=== PATIENT | female | born 1980 | race Caucasian/White ===

== ENCOUNTER 2017-04-02 10:38 | Day surgery (SDC) | payer MEDICAID ==
[2017-04-02] MEDS ORDERED: HYDROmorphone 1 MG/ML 1 ML SYRINGE IVP PRN (10:53)
[2017-04-02] MEDS ORDERED: LACTATED RINGERS 1,000 ML IV SCH (10:53)
[2017-04-02 11:00] VITALS: TEMP 98.4
[2017-04-02 11:15] VITALS: BMI 35.0
[2017-04-02] MEDS ORDERED: LIDOCAINE 1% INJ 10MG/ML (20 ML MDV) ONE (11:24)
[2017-04-02] MEDS ORDERED: PROPOFOL 10 MG/ML 20 ML VIAL IV ONE (11:24)
--- NOTE | 2017-04-02 11:27 | P.OP ---
Date of Procedure: 04/02/17 Preoperative Diagnosis: Epigastric pain Chronic constipation Rectal bleeding Fibromyalgia Postoperative Diagnosis: Hillgrade 2 Hiatal hernia Procedure(s) Performed: EGD with biopsy Colonoscopy Implants: NA Anesthesia: MAC Surgeon: Isa Fleming Pathology: other Condition: stable (ASA 2) Disposition: PACU Indications for Procedure: 36 yrs old female with fibromyalgia and chronic constipation presents with epigastric pain, cramps and spontaneous bright red rectal bleeding . 10 lbs weight loss. Take [place] 2-3 times a day for fibromyalgia. No family history of colon cancer or inflammatory bowel disease. She agreed undergo EGD and colonoscopy with biopsy Operative Findings: Hillgrade 2 hiatal hernia Internal and external hemorrhoids Description of Procedure: A timeout was performed to verify the correct patient and correct procedure. Patient was on continuous vitals and pulse ox monitoring throughout the procedure. She was placed in lateral decubitus position and an oral bite block was inserted. A well-lubricated Olympus upper endoscope was passed orally. The esophagus was intubated without difficulty. The vocal cords were visualised and protected at all times. The endoscope was passed beyond the pylorus into the first and second portion of the duodenum. No normality is noted in the duodenum mucosa. Two random biopsies were taken from the gastric antrum using cold biopsy forceps. The scope was then retroflexed. Small hiatal was noted which is Hill Grade 2. No mass, active ulcer or bleeding stigmata noted within the gastric lumen. The GE junction is measured at 35 cm from the incisors . No evidence of reflux esophagitis. The endoscope was gradually withdrawn. No abnormality identified in the esophagus. Patient tolerated the procedure well and was positioned for colonoscopy. The patient was brought to the endoscopy suite and placed in lateral decubitus position. IV sedation was given as per anesthesia team. Patient was on continuous vitals and pulse oximetry monitoring throughout the procedure. Perianal examination showed external hemorrhoids. Digital rectal examination was performed. No masses or gross blood. A well-lubricated Olympus colonoscope was passed per rectally and was gradually advanced beyond the sigmoid colon, splenic flexure, transverse colon, hepatic flexure and cecum. The ileocecal valve was visualized as well as the appendiceal orifice .The colonoscope was gradually withdrawn inspecting all the mucosal surfaces. Bowel prep was good. No polyps, masses, AV malformations noted. No sigmoid diverticulosis. The scope was gradually withdrawn and retroflexed in the rectum . Grade 2 internal hemorrhoids seen. Total withdrawal time was greater than 6 minutes . Patient tolerated the procedure well and was taken to post anesthesia care unit in stable condition. SPECIMEN: Antral biopsy RECOMMENDATION: Proctocort rectal suppository BID x 10 days Final Pathologic Diagnosis STOMACH, BIOPSY: MILD CHRONIC GASTRITIS. HELICOBACTER IMMUNOPEROXIDASE STAIN IS PERFORMED TO EVALUATE FOR HELICOBACTER ORGANISMS AND IS NEGATIVE (CONTROLS APPROPRIATE).
[2017-04-02 12:17] VITALS: BP 129/75; PULSE 69; RESP 16
== END 2017-04-02 12:39 | disposition home or self-care (01) ==
LOC: ORWHC2ENDO 10:38
PROVIDERS: ATTEND Surgery
DX: K29.50 Unspecified chronic gastritis without bleeding (principal); K44.9 Diaphragmatic hernia without obstruction or gangrene; K64.4 Residual hemorrhoidal skin tags; K64.1 Second degree hemorrhoids; R63.4 Abnormal weight loss; K59.00 Constipation, unspecified; F17.200 Nicotine dependence, unspecified, uncomplicated; Z79.891 Long term (current) use of opiate analgesic; Z79.899 Other long term (current) drug therapy; Z88.1 Allergy status to other antibiotic agents; Z88.0 Allergy status to penicillin
CPT/HCPCS: 81025; 88305; 88342; 45378; 43239; J2001; J2704

== ENCOUNTER → 2018-03-20 | Outpatient (CLI) | payer MEDICAID ==
--- NOTE | 2018-03-20 08:51 | US ---
EXAMINATION TYPE: US abdomen complete DATE OF EXAM: 03/20/2018 COMPARISON: NONE CLINICAL HISTORY: R10.10 ABD PAIN. RUQ pain EXAM MEASUREMENTS: Liver Length: 13.4 cm Gallbladder Wall: 0.2 cm CBD: 0.3 cm Spleen: 10.8 cm Right Kidney: 12.0 x 4.0 x 6.1 cm Left Kidney: 13.0 x 5.1 x 5.2 cm Pancreas: visualized portions wnl, imaged at end of exam Liver: wnl Gallbladder: multiple mobile stones with shadowing Evidence for sonographic Dias's sign: Yes CBD: wnl Spleen: wnl Right Kidney: No hydronephrosis or masses seen, limited views of lower pole due to bowel gas. Left Kidney: No hydronephrosis or masses seen Upper IVC: wnl Abd Aorta: wnl The liver is homogenous. The intrahepatic portion of the IVC and proximal abdominal aorta are within normal limits. Common bile duct is unremarkable. The visualized portions of the pancreas are homog enous. The spleen is unremarkable. Kidneys are symmetric and free of hydronephrosis. No renal lesi ons are seen. IMPRESSION: 1. Uncomplicated cholelithiasis.
--- NOTE | 2018-03-20 08:58 | US ---
EXAMINATION TYPE: US pelvis complete transvag DATE OF EXAM: 03/20/2018 COMPARISON: NONE CLINICAL HISTORY: R10.10 ABD PAIN. TECHNIQUE: . Transabdominal sonographic images of the pelvis were acquired. Transvaginal sonographi c images were medically necessary to better assess the following anatomy: ovaries Date of LMP: 02/19/2018 EXAM MEASUREMENTS: Uterus: 10.4 x 3.2 x 6.7 cm Endometrial Stripe: 1.3 cm Right Ovary: not visualized due to bowel gas cm Left Ovary: 4.0 x 3.2 x 2.3 cm 1. Uterus: Anteverted wnl 2. Endometrium: wnl 3. Right Ovary: not visualized due to bowel gas 4. Left Ovary: wnl, only seen transabdominally 5. Bilateral Adnexa: extensive bowel gas noted right adnexa 6. Posterior cul-de-sac: no free fluid IMPRESSION: 1. No significant abnormality appreciated.
== END | disposition home or self-care (01) ==
LOC: RADUSWWP 07:26
PROVIDERS: ATTEND Family Medicine
DX: K80.20 Calculus of gallbladder without cholecystitis without obstruction (principal)
CPT/HCPCS: 76700; 76830; 76856

== ENCOUNTER 2018-04-23 07:41 | Day surgery (SDC) | payer MEDICAID ==
[2018-04-20 14:56] VITALS: BMI 34.3
[~2018-04-23 07:41] MED LIST: LACTATED RINGERS 1,000 ML IV SCH; LIDOCAINE 1% 20 ML VIAL (10MG/ML) FOR IV START INTRADERMA PRN; MIDAZOLAM 2 MG/2 ML VIAL IV PRN
[2018-04-23] MEDS ORDERED: HEPARIN SODIUM,PORCINE 5,000 UNIT/ML 1 ML VIAL SQ ONE (08:00)
[2018-04-23] MEDS ORDERED: ceFAZolin IN SWFI 2 GM/20 ML SYRINGE IVP ONE (08:00)
[2018-04-23] MEDS ORDERED: SCOPOLAMINE 1.5MG/72HR PATCH TRANSDERM STA (08:40)
[2018-04-23] MEDS ORDERED: ONDANSETRON 4 MG/2 ML VIAL IVP STA (08:40)
[2018-04-23] MEDS ORDERED: DEXAMETHASONE SOD PHOSPHATE 10 MG/ML 1 ML VIAL IV ONE (08:40)
--- NOTE | 2018-04-23 08:59 | P.GSHP ---
History of Present Illness H&P Date: 04/23/18 Chief Complaint: Right upper quadrant pain This is a 37-year-old female referred from Dr. Michele. Patient presents today for laparoscopic cholestatic. She's had complaints of right upper quadrant pain. Her social shows evidence of cholelithiasis. Past Medical History Past Medical History: Diabetes Mellitus, Fibromyalgia, Seizure Disorder Additional Past Medical History / Comment(s): polycystic ovaries; diet controlled diabetes History of Any Multi-Drug Resistant Organisms: MRSA Date of last positivie culture/infection: 11/2017 MDRO Source:: vaginal cyst Past Surgical History: Section Past Anesthesia/Blood Transfusion Reactions: No Reported Reaction Smoking Status: Current every day smoker - Past Family History Brother(s) Family Medical History: Cancer Medications and Allergies Home Medications Medication Instructions Recorded Confirmed Type Gabapentin [Neurontin] 400 mg PO TID 09/14/15 04/20/18 History HYDROcodone/APAP 5-325MG [[place] 5] 1 tab PO Q8HR PRN 09/14/15 04/23/18 History DULoxetine HCL [Cymbalta] 60 mg PO DAILY 09/24/16 04/20/18 History Topiramate [Topamax] 100 mg PO QAM 09/24/16 04/20/18 History Allergies Allergy/AdvReac Type Severity Reaction Status Date / Time Penicillins Allergy Rash/Hives Verified 04/23/18 08:05 sulfamethoxazole Allergy Rash/Hives Verified 04/23/18 08:05 [From Bactrim] trimethoprim [From Bactrim] Allergy Rash/Hives Verified 04/23/18 08:05 Surgical - Exam Vital Signs Temp Pulse Resp BP Pulse Ox 97.7 F 77 18 130/82 97 04/23/18 08:06 04/23/18 08:06 04/23/18 08:06 04/23/18 08:06 04/23/18 08:06 - General well developed, no distress - Eyes PERRL - ENT normal pinna - Neck no masses - Respiratory normal expansion - Cardiovascular Rhythm: regular - Abdomen Abdomen: soft, non tender Assessment and Plan Assessment: Cholelithiasis Chronic Cholecystitis We'll perform laparoscopic cholecystectomy
[2018-04-23] MEDS ORDERED: KETOROLAC 30 MG/ML 1 ML VIAL ONE (09:16)
[2018-04-23] MEDS ORDERED: fentaNYL (PF) 50 MCG/ML 2 ML AMP ONE (09:16)
[2018-04-23] MEDS ORDERED: PROPOFOL 10 MG/ML 20 ML VIAL IV ONE (09:16)
[2018-04-23] MEDS ORDERED: NEOSTIGMINE 1 MG/ML 10 ML VIAL ONE (09:16)
[2018-04-23] MEDS ORDERED: LIDOCAINE 1% INJ 10MG/ML (20 ML MDV) ONE (09:16)
[2018-04-23] MEDS ORDERED: MIDAZOLAM 2 MG/2 ML VIAL ONE (09:16)
[2018-04-23] MEDS ORDERED: SUCCINYLCHOLINE CHLORIDE 100 MG/5 ML SYR IV ONE (09:16)
[2018-04-23] MEDS ORDERED: ROCURONIUM BROMIDE 10 MG/ML 10 ML VIAL IV ONE (09:16)
[2018-04-23] MEDS ORDERED: GLYCOPYRROLATE 0.2 MG/ML 2 ML VIAL ONE (09:16)
[2018-04-23] MEDS ORDERED: BUPIVACAINE (PF) 0.5% 30 ML VIAL SQ ONE (09:38)
[2018-04-23] MEDS ORDERED: LACTATED RINGERS 1,000 ML IV ONE (10:02)
[2018-04-23 10:19] VITALS: TEMP 98.8
--- NOTE | 2018-04-23 10:19 | P.OP ---
Date of Procedure: 04/23/18 Preoperative Diagnosis: Cholelithiasis Chronic cholecystitis Postoperative Diagnosis: Cholelithiasis Chronic cholecystitis Procedure(s) Performed: Laparoscopic cholecystectomy Anesthesia: TYREE Surgeon: Enrike Cohen Estimated Blood Loss (ml): 5 Pathology: other (Gallbladder) Condition: stable Disposition: PACU Description of Procedure: The patient was placed on the operating table. The patient received a general endotracheal tube anesthesia. The patients abdomen was prepped and draped in the usual sterile fashion. Through an infraumbilical stab incision, the fascia of the anterior abdominal wall was grasped with a pair of Kochers and then the Veress needle was placed in the peritoneal cavity. Position of the Veress needle was confirmed with positive drop test. The abdomen was then insufflated. After adequate insufflation, the 10 mm trocar was placed in the peritoneal cavity. Following this the laparoscope was placed in the peritoneal cavity. The patient was placed in the head-up, right side up position and then a 5 mm trocar was placed in the right lateral and right subcostal position under direct visualization. A 8 mm trocar was placed in the epigastric position. The gallbladder was grasped in the fundus and infundibulum. Traction on the gallbladder was placed in the lateral and the cephalad positions. The triangle of Calot was visualized.. The cystic duct was bluntly dissected until the union of the cystic duct and common bile duct was seen. The cystic duct was then divided and sealed with the Harmonic scissors. A PDS Endoloop was then placed throughout the cystic duct stump. The cystic artery divided and sealed with the Harmonic scissors. The gallbladder was then removed from the liver bed using Harmonic scissors. The gallbladder was then extracted through the epigastric port site. Operative field was checked for any bleeding spots and Harmonic scissors was used to coagulate the liver bed. The abdomen was irrigated. The trocars were removed. The skin was closed using interrupted 3-0 Vicryl suture. Dermabond dressing were applied. The patient tolerated the procedure well.
[2018-04-23] MEDS: fentaNYL (PF) 50 MCG/ML 2 ML AMP IV PRN ×2 (10:25→10:36)
[2018-04-23 10:30] VITALS: RESP 18
[2018-04-23 10:44] LABS: Glucose,Whole Blood 121 mg/dL (75-99)
[2018-04-23] MEDS ORDERED: MEPERIDINE 50 MG/ML SYRINGE IVP ONE (10:47)
[2018-04-23] MEDS ORDERED: HYDROcodone/APAP 5-325MG 1 EACH TAB PO ONE (11:34)
[2018-04-23 11:58] VITALS: BP 161/73; PULSE 63
== END 2018-04-23 12:07 | disposition home or self-care (01) ==
LOC: OR 07:41
PROVIDERS: ATTEND Surgery
DX: K80.10 Calculus of gallbladder with chronic cholecystitis without obstruction (principal); E11.9 Type 2 diabetes mellitus without complications; M79.7 Fibromyalgia; G40.909 Epilepsy, unspecified, not intractable, without status epilepticus; E28.2 Polycystic ovarian syndrome; F39 Unspecified mood [affective] disorder; F17.200 Nicotine dependence, unspecified, uncomplicated; Z88.0 Allergy status to penicillin; Z88.2 Allergy status to sulfonamides; Z88.1 Allergy status to other antibiotic agents; Z79.899 Other long term (current) drug therapy; Z86.14 Personal history of Methicillin resistant Staphylococcus aureus infection; Z80.9 Family history of malignant neoplasm, unspecified
CPT/HCPCS: 47562; 81025; 88304; J2250; J1644; J1100; J2710; J2175; J2405; J2001; J3010; J1885; J0330; J2704; J0690

== ENCOUNTER 2018-10-13 14:23 | Emergency (ER) | payer MEDICAID ==
[2018-10-13 15:15] VITALS: TEMP 98.5
--- NOTE | 2018-10-13 17:29 | ED ---
General Adult HPI - General Chief complaint: Back Pain/Injury Stated complaint: back,hip pain Source: patient, RN notes reviewed, old records reviewed Mode of arrival: ambulatory Limitations: no limitations - History of Present Illness Initial comments: 38-year-old female patient with past history of chronic low back pain, fibromyalgia, presents in ED with back pain, left-sided hip pain. Patient states that approximately one week ago she was walking down her steps, the bottom step she slipped on some ice, and did the "splits" with her left foot leading. Patient states that she has had pain in her lumbar spine, left hip since. Patient denies head or neck trauma during fall. Patient states that the pain. Back is mostly in her left paralumbar region, sometimes radiates to her left gluteal region. Patient states that the pain in her hip is left-sided , worse with ambulation. Patient has been ambulatory since injury. Denies new onset paresthesias, lower extremity weakness, loss of bowel or bladder control, fever/chills, history of IV drug use. Patient denies all other complaints. Patient states that she started her menses today, this is the regular time for her cycle to Start. Systemic: Pt denies fatigue, myalgia, fever/chills, rash. Pt denies weakness, night sweats, weight loss. Neuro: Pt denies headache, visual disturbances, syncope or pre-syncope. HEENT: Pt denies ocular discharge or irritation, otalgia, rhinorrhea, pharyngitis or notable lymphadenopathy. Cardiopulmonary: Pt denies chest pain, SOB, heart palpitations, dyspnea on exertion. Abdominal/GI: Pt denies abdominal pain, n/v/d. : Pt denies dysuria, burning w/ urination, frequency/urgency. Denies new onset urinary or bowel incontinence. MSK: Pt denies myalgia, loss of strength or function in extremities. - Related Data Home Medications Medication Instructions Recorded Confirmed Gabapentin [Neurontin] 400 mg PO TID 09/14/15 04/20/18 HYDROcodone/APAP 5-325MG [[place] 5] 1 tab PO Q8HR PRN 09/14/15 04/23/18 DULoxetine HCL [Cymbalta] 60 mg PO DAILY 09/24/16 04/20/18 Topiramate [Topamax] 100 mg PO QAM 09/24/16 04/20/18 Previous Rx's Medication Instructions Recorded Cyclobenzaprine [Flexeril] 1 tab PO TID 5 Days #15 tablet 10/13/18 Allergies Allergy/AdvReac Type Severity Reaction Status Date / Time Penicillins Allergy Rash/Hives Verified 10/13/18 15:12 sulfamethoxazole Allergy Rash/Hives Verified 10/13/18 15:12 [From Bactrim] trimethoprim [From Bactrim] Allergy Rash/Hives Verified 10/13/18 15:12 Review of Systems ROS Statement: Those systems with pertinent positive or pertinent negative responses have been documented in the HPI. ROS Other: All systems not noted in ROS Statement are negative. Past Medical History Past Medical History: Diabetes Mellitus, Fibromyalgia, Seizure Disorder Additional Past Medical History / Comment(s): polycystic ovaries; diet controlled diabetes History of Any Multi-Drug Resistant Organisms: MRSA Date of last positivie culture/infection: 11/2017 MDRO Source:: vaginal cyst Past Surgical History: Section Past Anesthesia/Blood Transfusion Reactions: No Reported Reaction Past Psychological History: Anxiety Smoking Status: Current every day smoker Past Alcohol Use History: None Reported Past Drug Use History: None Reported - Past Family History Brother(s) Family Medical History: Cancer General Exam - General Exam Comments Initial Comments: Constitutional: NAD, AOX3, Pt has pleasant affect. HEENT: NC/AT, trachea midline, neck supple, no lymphadenopathy. Posterior pharynx non erythematous, without exudates. External ears appear normal, without discharge. Mucous membranes moist. Eyes PERRLA, EOM intact. There is no scleral icterus. No pallor noted. Cardiopulmonary: RRR, no murmurs, rubs or gallops, no JVD noted. Lungs CTAB in anterior and posterior gaviria. No peripheral edema. Abdominal exam: Abdomen soft and non-distended. Abdomen non-tender to palpation in all 4 quadrants. Bowel sounds active in LLQ. No hepatosplenomegaly. Neuro: CN II-XII grossly intact. MSK: Midline cervical spine, thoracic spine, lumbar spine nontender to palpation. Left Paralumbar spinal area mildly tender to palpation. Patient hip 's nontender to palpation bilaterally. Patient ambulatory, heel toe walking intact. Patient psoas and quadriceps strength 5 out of 5 bilaterally. Patient patellar and Achilles reflex 2 out of 4 bilaterally. Patient posterior tibialis pulse +2 bilaterally. Patient sensation intact in lower extremities bilaterally. Patient straight leg raise positive bilaterally. Limitations: no limitations Course Vital Signs 10/13/18 10/13/18 10/13/18 15:12 18:51 20:12 Temperature 98.5 F Pulse Rate 91 70 68 Respiratory 18 16 14 Rate Blood Pressure 124/84 114/73 133/77 O2 Sat by Pulse 98 100 95 Oximetry Medical Decision Making - Medical Decision Making 38-year-old female patient presents in ED with lumbar back pain, left-sided hip pain. Patient sustained a slip and fall approximately one week ago. Patient did not have trauma to head or neck and fall. Physical exam revealed: Midline cervical spine, thoracic spine, lumbar spine nontender to palpation. Left Paralumbar spinal area mildly tender to palpation. Patient hip's nontender to palpation bilaterally. Patient ambulatory, heel toe walking intact. Patient psoas and quadriceps strength 5 out of 5 bilaterally. Patient patellar and Achilles reflex 2 out of 4 bilaterally. Patient posterior tibialis pulse +2 bilaterally. Patient sensation intact in lower extremities bilaterally. Patient straight leg raise positive bilaterally. Others exam including cardiopulmonary, HEENT, neuro, abdominal intent display acute pathology. Plain films of lumbar spine, hips bilaterally does not display any acute fracture, dislocation, pathologic findings. Patient to be diagnosed with lumbar back strain. Patient to follow-up with PCP in 1-2 days. Patient to return to ED if any new signs or symptoms develop including, weakness, paresthesias, loss of bowel or bladder control, saddle anesthesia, any other new symptoms. Patient discharged with muscle relaxer. Case discussed with Dr. Varela. - Lab Data Lab Results 10/13/18 10/13/18 Range/Units 19:01 19:01 Urine Color Light Red Urine Appearance Cloudy H (Clear) Urine pH 5.0 (5.0-8.0) Ur Specific [place] 1.019 (1.001-1.035) Urine Protein 1+ H (Negative) Urine Glucose (UA) Negative (Negative) Urine Ketones Trace H (Negative) Urine Blood Large H (Negative) Urine Nitrite Negative (Negative) Urine Bilirubin Negative (Negative) Urine Urobilinogen <2.0 (<2.0) mg/dL Ur Leukocyte Esterase Large H (Negative) Urine RBC >182 H (0-5) /hpf Urine WBC >182 H (0-5) /hpf Ur Squamous Epith Cells 1 (0-4) /hpf Urine Mucus Moderate H (None) /hpf Urine HCG, Qual Not Detected (Not Detectd) Disposition Clinical Impression: Lumbar back sprain Disposition: HOME SELF-CARE Condition: Good Instructions: Acute Low Back Pain (ED), Chronic Back Pain (ED) Additional Instructions: Patient to adhere to previously discussed treatment plan and will take medication(s) as directed. Patient to follow up with PCP in 1-2 days. Patient to return to ED if symptoms do not improve. Prescriptions: Cyclobenzaprine [Flexeril] 1 tab PO TID 5 Days #15 tablet Is patient prescribed a controlled substance at d/c from ED?: No Referrals: Serafin Michele Jr, DO [Primary Care Provider] - 1-2 days
--- NOTE | 2018-10-13 19:02 | XR ---
PROCEDURE: XR lumbar spine 3V DATE AND TIME: 10/13/2018 5:58 PM CLINICAL INDICATION: Fall, Pain TECHNIQUE: Department protocol. 3V COMPARISON: 10/08/2015 FINDINGS: There is no fracture or malalignment. The soft tissues are unremarkable. IMPRESSION: NO ACUTE PROCESS.
--- NOTE | 2018-10-13 19:05 | XR ---
PROCEDURE: XR Hip Bilateral Complete 4 views total DATE AND TIME: 10/13/2018 5:58 PM CLINICAL INDICATION: Injury,Pain TECHNIQUE: AP and frog-leg lateral right and left hip views were obtained for a total 4V COMPARISON: None FINDINGS: There is no fracture or malalignment. The soft tissues are unremarkable. IMPRESSION: NO ACUTE PROCESS.
[2018-10-13 19:11] LABS: Appearance,Urine Cloudy (Clear); Bilirubin,Urine Negative (Negative); Blood,Urine Large (Negative); Color,Urine Light Red; Glucose,Urine (UA) Negative (Negative); Ketones,Urine Trace (Negative); Leukocyte Esterase,Urine Large (Negative); Mucus,Urine Moderate /hpf; Nitrite,Urine Negative (Negative); Protein,Urine 1+ (Negative); RBC,Urine >182 /hpf (0-5); Specific Gravity,Urine 1.019 (1.001-1.035); Squamous Epithelial Cell,Urine 1 /hpf (0-4); Urobilinogen,Urine <2.0 mg/dL (<2.0)
[2018-10-13] MEDS ORDERED: KETOROLAC 60 MG/2 ML VIAL IM STA (19:42)
[2018-10-13 20:13] VITALS: BP 133/77; PULSE 68; RESP 14
== END 2018-10-13 20:12 | disposition home or self-care (01) ==
LOC: EC 14:23
DX: S33.5XXA Sprain of ligaments of lumbar spine, initial encounter (principal); M79.7 Fibromyalgia; G40.909 Epilepsy, unspecified, not intractable, without status epilepticus; F41.9 Anxiety disorder, unspecified; F17.200 Nicotine dependence, unspecified, uncomplicated; Z86.14 Personal history of Methicillin resistant Staphylococcus aureus infection; Z79.899 Other long term (current) drug therapy; Z88.0 Allergy status to penicillin; Z88.2 Allergy status to sulfonamides; W00.1XXA Fall from stairs and steps due to ice and snow, initial encounter; Y93.01 Activity, walking, marching and hiking; Y92.009 Unspecified place in unspecified non-institutional (private) residence as the place of occurrence of the external cause
CPT/HCPCS: 99284; 96372; 81001; 81025; 87086; 72100; 73521; J1885

== ENCOUNTER → 2018-11-07 | Outpatient (CLI) | payer MEDICAID ==
--- NOTE | 2018-11-08 07:28 | MR ---
EXAMINATION TYPE: MR lumbar spine wo con DATE OF EXAM: 11/07/2018 COMPARISON: None HISTORY: 38-year-old female low back pain TECHNIQUE: Multiplanar, multisequence images of the lumbar spine were acquired. FINDINGS: Vertebral body heights are preserved and alignment is maintained. No suspicious bone marrow replacement. Conus medullaris is normal. No prevertebral or paravertebral soft tissue abnormality. There is mild facet degenerative change noted in the lower lumbar spine. From T12 through L5 levels, no spinal canal or foraminal stenosis. At L5-S1, there is a left paracentral disc extrusion impinging the traversing left S1 nerve root. No neuroforaminal or spinal canal stenosis. IMPRESSION: 1. Left paracentral disc extrusion at L5-S1 impinging the traversing left S1 nerve root. 2. Otherwise, no specific abnormality seen.
== END | disposition home or self-care (01) ==
LOC: RADMRIMAIN 07:28
PROVIDERS: ATTEND Family Medicine
DX: M51.27 Other intervertebral disc displacement, lumbosacral region (principal)
CPT/HCPCS: 72148

== ENCOUNTER → 2019-03-18 | Outpatient (CLI) | payer MEDICAID ==
--- NOTE | 2019-03-18 13:53 | XR ---
EXAMINATION TYPE: XR chest 2V DATE OF EXAM: 03/18/2019 COMPARISON: None INDICATION: Preadmission testing Z01.818 TECHNIQUE: Frontal and lateral views of the chest are obtained. FINDINGS: The heart size is normal. The pulmonary vasculature is normal. The lungs are clear. IMPRESSION: 1. No acute pulmonary process.
[2019-03-18 13:55] LABS: Basophils % (A) 0 %; Eosinophils # (A) 0.2 k/uL (0-0.7); Eosinophils % (A) 3 %; HCT 38.4 % (34.0-46.0); HGB 12.9 gm/dL (11.4-16.0); Lymphocytes # (A) 1.8 k/uL (1.0-4.8); Lymphocytes % (A) 28 %; MCH 29.2 pg (25.0-35.0); MCHC 33.6 g/dL (31.0-37.0); Mean Platelet Volume 6.8; Monocytes # (A) 0.4 k/uL (0-1.0); Monocytes % (A) 6 %; Neutrophils # (A) 3.8 k/uL (1.3-7.7); Neutrophils % (A) 59 %; Platelet Count 326 k/uL (150-450); RBC 4.42 m/uL (3.80-5.40); RDW 14.2 % (11.5-15.5); WBC 6.5 k/uL (3.8-10.6)
[2019-03-18 13:58] LABS: INR 0.9 (<1.2); Partial Thromboplastin Time 24.3 sec (22.0-30.0); Prothrombin Time 9.9 sec (9.0-12.0)
[2019-03-18 14:04] LABS: Amorphous Sediment,Urine Occasional /hpf; Appearance,Urine Cloudy (Clear); Bilirubin,Urine Negative (Negative); Blood,Urine Negative (Negative); Color,Urine Yellow; Glucose,Urine (UA) Negative (Negative); Ketones,Urine Negative (Negative); Leukocyte Esterase,Urine Negative (Negative); Mucus,Urine Rare /hpf; Nitrite,Urine Negative (Negative); PH, Urine 6.5 (5.0-8.0); Protein,Urine Negative (Negative); Specific Gravity,Urine 1.019 (1.001-1.035); Squamous Epithelial Cell,Urine 5 /hpf (0-4); Urobilinogen,Urine <2.0 mg/dL (<2.0)
[2019-03-18 14:08] LABS: Anion Gap 10 mmol/L; Blood Urea Nitrogen 18 mg/dL (7-17); Carbon Dioxide 20 mmol/L (22-30); Chloride 111 mmol/L (98-107); Glucose 91 mg/dL (74-99); Potassium 4.3 mmol/L (3.5-5.1); Sodium 141 mmol/L (137-145)
== END | disposition home or self-care (01) ==
LOC: LABPAT 12:25
PROVIDERS: ATTEND Orthopaedic Surgery Orthopaedic Surgery of the Spine
DX: Z01.818 Encounter for other preprocedural examination (principal); Z01.812 Encounter for preprocedural laboratory examination; M51.27 Other intervertebral disc displacement, lumbosacral region
CPT/HCPCS: 36415; 71046; 80048; 81001; 85025; 85610; 85730; 93005

== ENCOUNTER 2019-03-22 13:42 | Day surgery (SDC) | payer MEDICAID ==
[~2019-03-22 13:42] MED LIST changes: +DEXAMETHASONE SOD PHOSPHATE 10 MG/ML 1 ML VIAL IV ONE; -LACTATED RINGERS 1,000 ML IV SCH; +ONDANSETRON 4 MG/2 ML VIAL IVP ONE; +ceFAZolin IN SWFI 2 GM/20 ML SYRINGE IVP ONE; +fentaNYL (PF) 50 MCG/ML 2 ML AMP IV PRN
[2019-03-22] MEDS: LACTATED RINGERS 1,000 ML IV SCH (14:27)
[2019-03-22] MEDS ORDERED: LACTATED RINGERS 1,000 ML IV ONE ×3 (14:27→18:40)
[2019-03-22 14:32] LABS: Glucose,Whole Blood 103 mg/dL (75-99)
[2019-03-22] MEDS ORDERED: PHENYLEPHRINE-0.9% NACL SYG 1 MG/10 ML SYRINGE ONE (15:58)
[2019-03-22] MEDS ORDERED: NEOSTIGMINE 1 MG/ML 10 ML VIAL ONE (15:58)
[2019-03-22] MEDS ORDERED: PROPOFOL 10 MG/ML 20 ML VIAL IV ONE (15:58)
[2019-03-22] MEDS ORDERED: fentaNYL (PF) 50 MCG/ML 2 ML AMP ONE (15:58)
[2019-03-22] MEDS ORDERED: LIDOCAINE 1% INJ 10MG/ML (20 ML MDV) ONE (15:58)
[2019-03-22] MEDS ORDERED: ESMOLOL 100 MG/10 ML VIAL ONE (15:58)
[2019-03-22] MEDS ORDERED: ROCURONIUM BROMIDE 10 MG/ML 10 ML VIAL IV ONE (15:58)
[2019-03-22] MEDS ORDERED: MIDAZOLAM 2 MG/2 ML VIAL ONE (15:58)
[2019-03-22] MEDS ORDERED: SUCCINYLCHOLINE CHLORIDE 100 MG/5 ML SYR IV ONE (15:58)
[2019-03-22] MEDS ORDERED: HYDROmorphone (PF) 1 MG/ML ONE (15:58)
[2019-03-22] MEDS ORDERED: LIDOCAINE 0.5%-EPI 1:200,000 50 ML VIAL SQ ONE ×2 (16:23)
[2019-03-22] MEDS: BACITRACIN 50,000 UNIT, POLYMYXIN B 500,000 UNIT in SODIUM CHLORIDE 0.9% IRRIGATIO 1,00... IRRIGATION ONE ×2 (16:25→16:45)
[2019-03-22] MEDS ORDERED: GELATIN SPONGE,ABSORB (LARGE) 1 EACH SPONGE TOPICAL ONE ×2 (16:43)
[2019-03-22] MEDS ORDERED: THROMBIN (BOVINE) 5,000 UNIT VIAL TOPICAL ONE ×2 (16:44)
[2019-03-22] MEDS ORDERED: methylPREDNISolone ACETATE 80 MG/ML 1 ML VIAL MISCELLANE ONE (17:39)
[2019-03-22] MEDS ORDERED: KETOROLAC 30 MG/ML 1 ML VIAL IVP PRN (18:15)
[2019-03-22] MEDS ORDERED: HYDROcodone/APAP 5-325MG 1 EACH TAB PO PRN (18:15)
[2019-03-22] MEDS ORDERED: HYDROmorphone 1 MG/ML 1 ML SYRINGE IVP PRN (18:15)
[2019-03-22] MEDS ORDERED: BENZOCAINE/MENTHOL LOZENG 1 EACH LOZENGE MUCOUS MEM PRN (18:15)
[2019-03-22] MEDS ORDERED: HYDROmorphone 0.5 MG/0.5 ML SYRINGE IVP PRN (18:15)
[2019-03-22] MEDS ORDERED: ONDANSETRON 4 MG/2 ML VIAL IVP PRN (18:15)
[2019-03-22] MEDS ORDERED: MAGNESIUM HYDROXIDE 2,400 MG/10 ML CUP PO PRN (18:15)
--- NOTE | 2019-03-22 18:27 | P.OP ---
Date of Procedure: 03/22/19 Preoperative Diagnosis: Herniated nucleus pulposis L5-S1, left lower extremity radiculopathy, left shoulder weakness, degenerative disc disease L5-S1 Postoperative Diagnosis: Same plus large blood loss approximately 500 mL Anesthesia: GETA Pathology: none sent Condition: stable Disposition: PACU Description of Procedure: BRIEF OPERATIVE NOTE Preoperative Diagnosis: Herniated nucleus pulposus L5-S1, left lower shoulder radiculopathy, left lower extremity weakness, degenerative disc disease, obesity Postoperative Diagnosis: Same plus large blood loss approximately 500 mL Procedure: Laminectomy and decompression L5-S1 Discectomy for decompression L5-S1 Use of C-arm fluoroscopic guidance Increased level of difficulty due to patient's body habitus Surgeon: Dr. Mathur Collating Machine Operator: Tyrone Rivero is present throughout the entire the case persistence during positioning, dissection, exposure, visualization, and all crucial elements of the case as well as closure. Anesthesia: General anesthesia Estimated blood loss: approximately 500 mL Complications: None apparent Components implanted:none Disposition: To recovery room in good stable condition. OPERATIVE INDICATIONS The patient has been having issues in their lower back and lower extremities. she's been having pain at her left lower extremity over the past several months and has had symptoms for at least the past 6 months. She has been having worsening of her symptoms at her left lower extremity and increased ability. She is found have a disc herniation at L5-S1 on left side which correlated with her low back and left lower extremity radicular symptoms. She is not having any prolonged benefit despite aggressive conservative treatment. The patient has been through conservative treatment. We discussed various treatment options including surgery, and the patient wishes to proceed with surgery We discussed the risk, patient's alternatives and benefits of surgery including but not limited to, risk of bleeding risk of infection, risk of need for further surgery, risk of decreased, loss of motion, loss of function, nerve damage, paralysis, heart attack, blindness and . OPERATIVE SUMMARY After discussing all the risks, patient alternatives and benefits at length, the patient elected to proceed with surgical intervention, signed informed consent, and presented for their procedure. The patient was seen and examined in the preoperative holding area and the surgical site was marked. The patient was given antibiotics and brought to the operating room. The patient was sedated and intubated by anesthesia in standard fashion. The patient was positioned on to the operating room table in a prone position on the appropriate frame which was well-padded and well molded. We were careful to pad any bony prominences and pressure points. We were careful to maintain the patient's cervical spine and good neutral alignment and position throughout. The patient was prepped and draped in a normal standard fashion. An appropriate timeout and keystone protocol performed. We were able to proceed with the surgery. Fluoroscopy was utilized to establish the appropriate level at L5-S1 . The local wound area was infiltrated with local anesthetic. the patient has a tattoo at her low back and was aware that the incision would likely involve protect to. An incision was made at the midline longitudinally over the appropriate levels at L5-S1 . Dissection was taken down subcutaneously to the level of the fascia which was split midline. Dissection was taken over the lamina. Intraoperative fluoroscopy was taken which showed a marker at the appropriate level of L5-S1 . With the appropriate level positively confirmed, we were able to proceed with laminectomy. The wound was copiously irrigated and suctioned dry as had been done periodically throughout the case. I performed a laminectomy with a combination of curettes and a high-speed bur and Kerrison rongeurs. A small medial facetectomy was performed again further access. A partial foraminotomy was also performed. Portions of the ligamentum flavum were taken down to expose the dura and traversing nerve root. I was able to mobilize the traversing nerve root and gain access to the disc space. Note was made of obvious compression from the disc. there was note of a very large osteophytic spur formation over the disc at L5-S1. There were some epidural bleeders and some significant bleeding at the epidural space tried to cauterize and with bipolar cauterization however had difficulty doing good hemostasis. The patient had approximately 500 mL of blood loss throughout the case. She did have some tachycardia during the case as well. We were able to control the bleeding and get good hemostasis by the end of procedure. Through the large osteophyte, I had to remove bone over the posterior aspect of the disc space nor to gain further access to the disc itself. This was extremely tedious as the osteophyte was significantly developed and I had to protect the traversing nerve root. I was able to work my way down through the osteophyte and remove significant portions of the osteophytic bone and get some decompression with this. I was able gain access to the disc itself. Protecting the soft tissue structures, a small annulotomy was established. I was able to perform discectomy and remove any extruded disc fragments and any loose fragments from within the disc itself. There is some disc desiccation noted. I tried to preserve the disc annulus that appeared stable. There were no further extruded fragments noted. There is no evidence of dural tear or leak. Good hemostasis maintained as we're able to hold pressure over the epidural veins and achieve good hemostasis . The wound was copiously irrigated and suctioned dry. Good decompression and discectomy was noted. We were able to proceed with closure. The fascia was closed for a watertight closure. The subcuticular tissue was closed with absorbable suture. The wound was cleaned and dried and dressed with the appropriate dressing. The drapes were broken down. The patient was gently rolled back onto their hospital bed being careful to maintain their cervical spine and good neutral alignment and position. They were woken up by anesthesia, extubated, and brought to the recovery room in good stable condition. The patient will be admitted to the hospital for observation and for appropriate postoperative care, medical management and monitoring. We will continue to follow them closely about the postoperative course.
[2019-03-22] MEDS ORDERED: ONDANSETRON 4 MG/2 ML VIAL IVP ONE (18:30)
--- NOTE | 2019-03-22 18:33 | XR ---
EXAMINATION TYPE: XR lumbar spine 1V, FL guidance operating room DATE OF EXAM: 03/22/2019 COMPARISON: NONE HISTORY: 38-year-old female lumbar laminectomy FINDINGS: One image provided with metallic surgical instrument posteriorly at the L5-S1 level. FLUOROSCOPY Fluoroscopy time of 2 seconds was used during lumbar laminectomy. 1 image/s document/s the procedure . IMPRESSION: Fluoroscopy as above.
[2019-03-22] MEDS: HYDROmorphone 0.5 MG/0.5 ML SYRINGE IVP PRN ×2 (18:42→18:50)
[2019-03-22] MEDS: IBUPROFEN 600 MG TAB PO PRN (20:04)
[2019-03-22] MEDS: SODIUM CHLORIDE 0.9% 1,000 ML IV SCH (20:49)
[2019-03-22] MEDS ORDERED: FLUoxetine HCL 20 MG CAP PO SCH (21:00)
[2019-03-22] MEDS: CYCLOBENZAPRINE 5 MG TAB PO SCH (21:28)
[2019-03-22] MEDS: TOPIRAMATE 25 MG TAB PO SCH (21:28)
[2019-03-22] MEDS: HYDROcodone/APAP 5-325MG 1 EACH TAB PO PRN (21:29)
[2019-03-22] MEDS: GABAPENTIN 400 MG CAP PO SCH (21:29)
[2019-03-23] MEDS: ceFAZolin IN SWFI 2 GM/20 ML SYRINGE IVP SCH ×2 (00:07→08:36)
[2019-03-23] MEDS: LACTATED RINGERS 1,000 ML IV SCH (01:32)
[2019-03-23 01:49] VITALS: BMI 39.3
[2019-03-23] MEDS: IBUPROFEN 600 MG TAB PO PRN ×2 (03:05→08:48)
[2019-03-23] MEDS: HYDROcodone/APAP 5-325MG 1 EACH TAB PO PRN ×3 (03:05→14:30)
[2019-03-23 03:15] VITALS: RESP 16
--- NOTE | 2019-03-23 08:21 | XR ---
EXAMINATION TYPE: XR lumbar spine 1V, FL guidance operating room DATE OF EXAM: 03/22/2019 COMPARISON: NONE HISTORY: 38-year-old female needle placement FINDINGS: Single image demonstrating metallic hardware positioning along the posterior aspect of the lower lumb ar spine. FLUOROSCOPY Fluoroscopy time of 4 seconds was used during needle placement. 1 image/s document/s the procedure. IMPRESSION: Fluoroscopy as above.
[2019-03-23] MEDS: GABAPENTIN 400 MG CAP PO SCH (08:37)
[2019-03-23] MEDS: CYCLOBENZAPRINE 5 MG TAB PO SCH (08:37)
[2019-03-23] MEDS: TOPIRAMATE 25 MG TAB PO SCH (08:38)
--- NOTE | 2019-03-23 08:39 | P.DS ---
Providers Date of admission: 03/22/2019 Expected date of discharge: 03/23/19 Attending physician: Leno Mathur Primary care physician: Serafin Michele - Discharge Diagnosis(es) (1) Lumbosacral disc herniation Current Visit: Yes Status: Acute (2) Weakness of left lower extremity Current Visit: Yes Status: Acute (3) Lumbar back pain with radiculopathy affecting left lower extremity Current Visit: Yes Status: Acute (4) Disc disease, degenerative, lumbar or lumbosacral Current Visit: Yes Status: Acute (5) History of epilepsy Current Visit: Yes Status: Acute (6) History of headache Current Visit: Yes Status: Acute Hospital Course: This is a pleasant 38-year-old female who presented with L5-S1 left-sided herniated nucleus pulposus, lumbosacral degenerative disc disease, left lower extremity radiculopathy, and left lower extremity weakness who failed outpatient conservative therapy. She was admitted for an L5-S1 laminectomy decompression with discectomy. The patient tolerated the procedure well. She continues to have ongoing left buttock pain and some left leg pain. She has been able to ambulate to the restroom. She able to eat breakfast this morning without significant difficulty. She had remained on IV fluids over the night as she was having some systolic blood pressure readings in the 100s. She does feel she is ready for discharge home today. Condition on day of discharge stable. Patient will be discharged home. Patient was cleared preoperatively for surgery by Dr. Michele. Patient currently denies any nausea, vomiting, fever, or chills. Patient is eating and voiding freely without difficulty. Patient may shower Tegaderm dressing intact. Patient may remove Tegaderm dressing in 3 days and shower without a dressing at that time. Patient should keep Steri-Strips intact and allow them to fall off naturally. Patient should refrain from driving until at least after their first follow-up appointment in the office. Patient should avoid excessive bending, lifting, and twisting; no lifting greater than 10 pounds. Patient may resume previously home prescribed medications including Alma 5 mg/325 mg which she states was just recently refilled. Patient also has a medical history which includes epilepsy and headaches. Patient's last 2 measured systolic pressure readings were 107 and 103. Patient will be clear for discharge if her systolic pressure readings remain stable and she does not become hypotensive. Physical Exam on day of discharge: Patient is awake, alert, and oriented 3 Vital signs stable Good chest excursion with deep inspiration and expiration No signs or symptoms of DVT; no calf pain Extensor hallucis longus, plantarflexion, and dorsiflexion positive sustained bilateral lower extremities Incision is clean and intact with some dried blood at the superior portion of the dressing; no erythema, purulence, or signs of infection No significant pain with palpation over the surgical site Evidence of a tattoo over the lower lumbar spine Tegaderm dressing and non-stick Telfa intact Procedures: L5-S1 laminectomy and decompression with discectomy Patient Condition at Discharge: Stable Plan - Discharge Summary Discharge Rx Participant: Yes New Discharge Prescriptions: No Action HYDROcodone/APAP 5-325MG [Alma 5] 1 tab PO Q8HR PRN PRN Reason: Pain Gabapentin [Neurontin] 400 mg PO TID Topiramate [Topamax] 50 mg PO TID DULoxetine HCL [Cymbalta] 30 mg PO DAILY FLUoxetine HCL [PROzac] 20 mg PO HS Cyclobenzaprine [Flexeril] 5 mg PO TID Ibuprofen [Motrin] 800 mg PO TID Discharge Medication List Gabapentin [Neurontin] 400 mg PO TID 09/14/15 [History] HYDROcodone/APAP 5-325MG [Alma 5] 1 tab PO Q8HR PRN 09/14/15 [History] DULoxetine HCL [Cymbalta] 30 mg PO DAILY 09/24/16 [History] Topiramate [Topamax] 50 mg PO TID 09/24/16 [History] Cyclobenzaprine [Flexeril] 5 mg PO TID 03/18/19 [History] FLUoxetine HCL [PROzac] 20 mg PO HS 03/18/19 [History] Ibuprofen [Motrin] 800 mg PO TID 03/18/19 [History] Follow up Appointment(s)/Referral(s): Tyrone Redmond, BELLA [PHYSICIAN NIGHT CUSTODIAN] - 2 Weeks (Patient may follow-up with Tyrone Redmond PA-C or Dr. Sandeep Mathur at [facility] in 2-3 weeks following discharge. ) Activity/Diet/Wound Care/Special Instructions: 1. Patient may shower with Tegaderm dressing intact. 2. Patient may remove Tegaderm dressing in 3 days and shower without a dressing at that time. 3. Patient should keep Steri-Strips intact and allow them to fall off naturally. 4. Patient should refrain from driving until at least after their first follow- up appointment in the office. 5. Patient should avoid excessive bending, twisting, and lifting; no lifting greater than 10 pounds 6. Take medications as prescribed 7. Do not soak in tub Discharge Disposition: HOME SELF-CARE
[2019-03-23 08:40] LABS: Basophils % (A) 0 %; Eosinophils % (A) 0 %; HCT 33.4 % (34.0-46.0); HGB 10.9 gm/dL (11.4-16.0); Lymphocytes # (A) 0.9 k/uL (1.0-4.8); Lymphocytes % (A) 10 %; MCH 29.8 pg (25.0-35.0); MCHC 32.7 g/dL (31.0-37.0); Mean Platelet Volume 6.3; Monocytes # (A) 0.3 k/uL (0-1.0); Monocytes % (A) 3 %; Neutrophils # (A) 7.9 k/uL (1.3-7.7); Neutrophils % (A) 86 %; Platelet Count 292 k/uL (150-450); RBC 3.67 m/uL (3.80-5.40); RDW 13.4 % (11.5-15.5); WBC 9.1 k/uL (3.8-10.6)
[2019-03-23 08:41] VITALS: TEMP 98.4
[2019-03-23] MEDS: SODIUM CHLORIDE 0.9% 1,000 ML IV SCH (08:53)
[2019-03-23] MEDS ORDERED: SENNOSIDES-DOCUSATE SODIUM 1 EACH TAB PO SCH (09:00)
[2019-03-23 11:46] VITALS: PULSE 86
[2019-03-23 14:30] VITALS: BP 115/72
== END 2019-03-23 15:08 | disposition home or self-care (01) ==
LOC: OR 13:42 → 4SSUR 17:49 → OR 03-23 15:08
PROVIDERS: ATTEND Orthopaedic Surgery Orthopaedic Surgery of the Spine
DX: M51.17 Intervertebral disc disorders with radiculopathy, lumbosacral region (principal); E66.9 Obesity, unspecified; Z68.39 Body mass index [BMI] 39.0-39.9, adult; F32.9 Major depressive disorder, single episode, unspecified; F17.210 Nicotine dependence, cigarettes, uncomplicated; K44.9 Diaphragmatic hernia without obstruction or gangrene; R20.0 Anesthesia of skin; G40.409 Other generalized epilepsy and epileptic syndromes, not intractable, without status epilepticus; R53.1 Weakness; K21.9 Gastro-esophageal reflux disease without esophagitis; Z79.891 Long term (current) use of opiate analgesic; Z79.899 Other long term (current) drug therapy; Z90.49 Acquired absence of other specified parts of digestive tract; Z88.2 Allergy status to sulfonamides; Z88.0 Allergy status to penicillin
CPT/HCPCS: 63030; 97161; 81025; 86900; 86901; 85025; 86850; 72020; J2250; J1040; J2710; J2405; J2001; J3010; J1170 ×2; J2370; J0330; J2704; J0690 ×2